=== PATIENT | female | born 1980 | race Hispanic/Latino ===

== ENCOUNTER → 2020-10-06 | Outpatient (CLI) | payer BC | END | disposition home or self-care (01) | LOC: RAH 08:06 | PROVIDERS: ATTEND Physician Assistant Medical | DX: Z12.31 Encounter for screening mammogram for malignant neoplasm of breast (principal); Z00.01 Encounter for general adult medical examination with abnormal findings | CPT/HCPCS: 77067 ==

== ENCOUNTER 2021-04-28 07:40 | Inpatient (IN) | payer BC ==
[2021-04-26 13:35] VITALS: BP 152/80
[2021-04-26 13:58] LABS: BASOPHILS % (AUTO) 0.5 % (0.0-5.0); EOSINOPHILS % (AUTO) 4.4 % (0.0-8.0); HEMATOCRIT 36.7 % (36-48); LYMPHOCYTES % (AUTO) 35.8 % (21.0-51.0); MEAN CORPUSCULAR HEMOGLOBIN 27.8 pg (27.0-33.0); MEAN CORPUSCULAR HGB CONC 32.2 g/dL (32.0-36.0); MEAN CORPUSCULAR VOLUME 86.6 fL (79-99); NEUTROPHILS % (AUTO) 53.1 % (40.0-77.0); PLATELET COUNT (AUTO) 274 K/uL (130-400); RED BLOOD CELL COUNT(AUTO) 4.24 MIL/uL (4.00-5.50); RED CELL DISTRIBUTION WIDTH 12.4 % (11.0-15.5); WHITE BLOOD COUNT (AUTO) 5.6 K/uL (4.8-10.8)
[2021-04-28] VITALS (22 sets, daily range): BP systolic 115–151; BP diastolic 63–84
[~2021-04-28] VITALS: Ht 154.9 cm; Wt 76.3 kg
[~2021-04-28 07:40] MED LIST: BIRTH CONTROL PILL PO
[2021-04-28] MEDS ORDERED: LACTATED RINGERS 1000ML 1,000 ML IV ONE (09:05)
[2021-04-28] MEDS ORDERED: NORG1TAB75 PO (09:28)
[2021-04-28] MEDS: CEFAZOLIN SODIUM 1 GM VIAL ONE ×2 (09:31→12:30)
[2021-04-28] MEDS ORDERED: CALDOLOR 800MG+NS 250ML 250 ML IV SCH (10:00)
[2021-04-28] MEDS ORDERED: PROPOFOL 10 MG/ML 20ML VIAL IV ONE (12:11)
[2021-04-28] MEDS ORDERED: FENTANYL CITRATE PF 50 MCG/1 ML 2ML VIAL ONE ×3 (12:11→13:47)
[2021-04-28] MEDS ORDERED: ONDANSETRON 4MG INJ ONE (12:11)
[2021-04-28] MEDS ORDERED: MIDAZOLAM HCL 1 MG/ML 2ML VIAL ONE (12:11)
[2021-04-28] MEDS ORDERED: MORPHINE PF 100MG/10ML AMP IV ONE (12:18)
[2021-04-28] MEDS ORDERED: ONDANSETRON 4MG INJ IVP PRN (13:00)
[2021-04-28] MEDS ORDERED: DOCUSATE SODIUM 100 MG CAP PO PRN (13:00)
[2021-04-28] MEDS ORDERED: MEPERIDINE-PF 75 MG/ML SYG IM PRN (13:00)
[2021-04-28] MEDS ORDERED: SIMETHICONE 80 MG TAB.CHEW PO PRN (13:00)
[2021-04-28] MEDS ORDERED: HYDROCODONE/ACETAMINOPHEN 5/325 MG TAB PO PRN (13:00)
[2021-04-28] MEDS ORDERED: BISACODYL 10 MG SUPP.RECT RC PRN ×2 (13:00)
[2021-04-28] MEDS ORDERED: ACETAMINOPHEN WITH CODEINE 1 TAB TAB PO PRN (13:00)
[2021-04-28] MEDS ORDERED: PROMETHAZINE HCL 25 MG/ML 1ML AMPULE IM PRN ×2 (13:00)
[2021-04-28] MEDS ORDERED: EPHEDRINE SULFATE 50 MG/ML AMPULE ONE (13:21)
[2021-04-28] MEDS ORDERED: GLYCOPYRROLATE 1 MG/5 ML SYRINGE ONE (13:49)
[2021-04-28] MEDS ORDERED: NEOSTIGMINE 5MG/5ML SYR IV ONE (13:49)
[2021-04-28] MEDS ORDERED: ARTIFICIAL TEARS 3.5 GM OINTMENT ONE (14:03)
[2021-04-28] MEDS: SIMETHICONE 80 MG TAB.CHEW PO PRN ×2 (18:22→21:03)
[2021-04-28] MEDS: CALDOLOR 800MG+NS 250ML 250 ML IVPB SCH (21:03)
[2021-04-28] MEDS: DOCUSATE SODIUM 100 MG CAP PO PRN (21:03)
[2021-04-28] MEDS: DEXTROSE 5 %-0.45 % NACL 1,000 ML IV PRN (22:05)
[2021-04-29 03:55] VITALS: BP 103/55
[2021-04-29] MEDS: CALDOLOR 800MG+NS 250ML 250 ML IVPB SCH (05:08)
[2021-04-29] MEDS: DEXTROSE 5 %-0.45 % NACL 1,000 ML IV PRN (07:08)
[2021-04-29 07:30] VITALS: BP 101/58
[2021-04-29] MEDS: DOCUSATE SODIUM 100 MG CAP PO PRN (08:48)
[2021-04-29] MEDS: SIMETHICONE 80 MG TAB.CHEW PO PRN ×2 (08:48→17:42)
[2021-04-29 12:01] VITALS: BP 115/56
[2021-04-29] MEDS ORDERED: IBUPROFEN 800 MG TAB PO SCH (13:00)
[2021-04-29 17:04] VITALS: BP 136/76
[2021-04-29] MEDS ORDERED: DOCU-116 PO (18:10)
[2021-04-29] MEDS ORDERED: IBUP-2077 PO (18:11)
[2021-04-29 19:31] VITALS: BP 132/71
== END 2021-04-29 19:40 | disposition home or self-care (01) | DRG 743 ==
LOC: DAHIP 07:40 → WSH 15:15
PROVIDERS: ADMIT Obstetrics & Gynecology; ATTEND Obstetrics & Gynecology
PROC: 0UT90ZZ Resection of Uterus, Open Approach (ICD-10-PCS; principal; 2021-04-28 12:20)
PROC: 0UB70ZZ Excision of Bilateral Fallopian Tubes, Open Approach (ICD-10-PCS; 2021-04-28 12:20)
PROC: 0UB10ZZ Excision of Left Ovary, Open Approach (ICD-10-PCS; 2021-04-28 12:20)
DX: D25.9 Leiomyoma of uterus, unspecified (principal); D27.1 Benign neoplasm of left ovary; Z20.822 Contact with and (suspected) exposure to COVID-19; Z88.8 Allergy status to other drugs, medicaments and biological substances; N73.6 Female pelvic peritoneal adhesions (postinfective)
CPT/HCPCS: 36415; 84703; 85025; 86850; 86900; 86901; 87635; A4344; G0378; J0690; J1741; J2175; J2250; J2274; J2405; J2550; J2704; J2710; J3010; J3490; J7030; J7120

== ENCOUNTER → 2025-05-03 | Outpatient (CLI) | payer BC ==
[~2025-05-03] MED LIST changes: -BIRTH CONTROL PILL PO; +DOCU-116 PO; +IBUP-2077 PO
== END | disposition home or self-care (01) ==
LOC: RAH 15:42
PROVIDERS: ATTEND Family Medicine
DX: Z12.31 Encounter for screening mammogram for malignant neoplasm of breast (principal)
CPT/HCPCS: 77067